=== PATIENT | male | born 1985 | race African-American/Black ===

== ENCOUNTER 2019-10-07 18:17 | Emergency (ER) | payer BC, OTHER ==
[~2019-10-07] VITALS: Ht 170.2 cm; Wt 66.2 kg
[2019-10-07] MEDS ORDERED: IBUP200T49 PO (18:47)
--- NOTE | 2019-10-07 18:47 | NUR ---
PT IN HOSPITAL GOWN. WAS ABLE TO AMBULATE STEADILY TO BATHROOM TO VOID AND PROVIDE URINE SAMPLE. PT ON CARDIAC AND VITALS MONITORS. CALL LIGHT WITHIN REACH. PT AWAITING ERP EVAL.
--- NOTE | 2019-10-07 18:50 | NUR ---
BEDSIDE REPORT GIVEN TO ZEHRA GOODWIN. ER DOC AT BEDSIDE.
--- NOTE | 2019-10-07 18:51 | NUR ---
Bedside report from Aravind GOODWIN.
[2019-10-07] MEDS ORDERED: KETOROLAC 30 MG/1 ML ONE (18:55)
[2019-10-07] MEDS ORDERED: KETOROLAC 30 MG/1 ML IM ONE (19:00)
--- NOTE | 2019-10-07 19:02 | NUR ---
Medicated per MAR. Lab and xray at bedside.
[2019-10-07 19:17] LABS: BASOPHILS # (AUTO) 0.03 x10^3/uL (0-0.1); BASOPHILS % (AUTO) 0 % (0-1); EOSINOPHILS # (AUTO) 0.09 x10^3/uL (0-0.4); EOSINOPHILS % (AUTO) 1 % (1-7); LYMPHOCYTES # (AUTO) 1.74 x10^3/uL (1-3.4); LYMPHOCYTES % (AUTO) 25 % (22-44); MEAN CORPUSCULAR HEMOGLOBIN 22.7 pg (27.5-34.5); MEAN CORPUSCULAR HGB CONC 31.8 g/dL (33.2-36.2); MEAN CORPUSCULAR VOLUME 71.5 fL (81-97); MEAN PLATELET VOLUME 10.7 fL (7.4-10.4); MONOCYTES # (AUTO) 0.59 x10^3/uL (0.2-0.8); MONOCYTES % (AUTO) 9 % (2-9); NEUTROPHILS # (AUTO) 4.39 x10^3/uL (1.8-6.8); NEUTROPHILS % (AUTO) 64 % (42-75); PLATELET COUNT 225 x10^3/uL (130-400); RED BLOOD COUNT 6.16 x10^6/uL (4.38-5.82); RED CELL DISTRIBUTION WIDTH 15.4 % (9.4-14.8)
[2019-10-07 19:18] LABS: ALBUMIN 3.7 g/dL (3.4-5.0); ANION GAP 6 mmol/L (5-15); CALCIUM 8.5 mg/dL (8.5-10.1); CHLORIDE 105 mmol/L (98-107); CREATININE 1.05 mg/dL (0.7-1.3); MD NO
[2019-10-07 19:20] VITALS: BP 135/89
[2019-10-07 19:22] LABS: TROPONIN I < 0.015 ng/mL (0.000-0.045)
--- NOTE | 2019-10-07 19:41 | NUR ---
Pt resting on karina on his cell phone, no acute distress noted. VSS.
== END 2019-10-07 19:56 | disposition home or self-care (01) ==
LOC: ED 19:33
DX: R09.1 Pleurisy (principal); I51.7 Cardiomegaly
CPT/HCPCS: 36415; 71045; 80048; 82040; 84484; 85025; 93005; 96372; 99285; J1885